=== PATIENT | male | born 1955 | race Caucasian/White ===

== ENCOUNTER 2017-06-13 06:24 | Emergency (ER) | payer OTHER ==
[~2017-06-13] VITALS: Ht 193 cm; Wt 129.6 kg
[~2017-06-13 06:24] MED LIST: ASPIR-LOW81 MG PO; CAL MAG ZINC +1 EAC1 PO; CALCIUM 500 +1 EACH PO; CITALOPRAM HBR40 MG PO; FISH OIL 1,0001 EAC7 PO; LASIX40 MG PO; LISINOPRIL20 MG PO; LO-DOSE ASPIRIN81 M1 PO; LOPRESSOR50 MG PO; METOPROLOL SUCC50 MG PO; MULTIPLE VITAM1 EAC1 PO; OMEGA 3-6-9 CO1 EACH PO; ONE-A-DAY ESSE1 EAC1 PO; PERCOCET 5/31 TABLET PO; POTASSIUM-9999 MG PO; PROBIOTIC1 EAC1 PO; PROBIOTIC1 EAC2 PO; RANITIDINE HCL150 MG PO; SOTALOL80 MG PO; TYLENOL ARTHRI650 MG PO; XARELTO20 MG PO
[2017-06-13 08:53] VITALS: BP 168/91
== END 2017-06-13 08:54 | disposition home or self-care (01) ==
LOC: EME → EDBD 06:24 → EME 08:54
DX: S16.1XXA Strain of muscle, fascia and tendon at neck level, initial encounter (principal); R51 Headache; M25.512 Pain in left shoulder; V43.52XA Car driver injured in collision with other type car in traffic accident, initial encounter; Y92.410 Unspecified street and highway as the place of occurrence of the external cause; M47.892 Other spondylosis, cervical region; I10 Essential (primary) hypertension; Z79.01 Long term (current) use of anticoagulants; Z79.82 Long term (current) use of aspirin
CPT/HCPCS: 70450; 72125; 73030; 99281; 99283

== ENCOUNTER 2017-11-28 01:30 | Inpatient (IN) | payer OTHER ==
[~2017-11-28] VITALS: Ht 193 cm; Wt 140.1 kg
[~2017-11-28 01:30] MED LIST changes: +METOPROLOL SUC100 MG PO; -METOPROLOL SUCC50 MG PO
[2017-11-28 02:00] LABS: HEMATOCRIT 49.6 % (38.0-50.0); HEMOGLOBIN 16.9 G/DL (12.5-16.6); MCH 30.3 PG (29.0-34.0); MCHC 34.1 G/DL (30.0-36.0); MCV 88.9 FL (86-99); PLATELET COUNT 268 K/uL (156-360); RBC DIS.WIDTH-CV 12.2 % (11.8-14.6); RBC DIS.WIDTH-SD 39.9 % (39-53); RED BLOOD COUNT 5.58 M/uL (4.00-5.50); WHITE BLOOD COUNT 10.8 K/uL (4.1-10.2)
[2017-11-28 02:11] LABS: CHLORIDE 105 mEq/L (99-109); POTASSIUM 4.2 mEq/L (3.7-5.4); SODIUM 141 mEq/L (136-147)
[2017-11-28 02:12] LABS: GLUCOSE 118 mg/dL (70-99)
[2017-11-28 02:17] LABS: CREATININE 0.8 mg/dL (0.6-1.3); GFR ESTIMATE (CALCULATED) > 59 mL/min/ (58.99-99999); UREA NITROGEN (BUN) 15 mg/dL (9-23)
[2017-11-28 02:21] LABS: TROP-I INTERPRETATION NEGATIVE; TROPONIN-I 0.03 ng/mL (0.0-0.30)
[2017-11-28 02:22] LABS: INTER. NORMALIZED RATIO 1.4; MAGNESIUM 2.2 mg/dL (1.3-2.7)
[2017-11-28 02:25] LABS: PTT 33.2 SEC (25-37)
[2017-11-28 05:30] VITALS: BP 161/78
[2017-11-28] MEDS ORDERED: CELEXA20 MG PO (05:53)
[2017-11-28] MEDS ORDERED: NORVASC5 MG PO (06:02)
[2017-11-28] MEDS ORDERED: LASIX40 MG PO (06:05)
[2017-11-28] MEDS ORDERED: ACID CONTROL150 MG PO (06:06)
[2017-11-28 07:29] VITALS: BP 134/82
[2017-11-28 09:18] VITALS: BP 124/85
[2017-11-28 10:52] LABS: TROP-I INTERPRETATION NEGATIVE; TROPONIN-I 0.02 ng/mL (0.0-0.30)
[2017-11-28] MEDS ORDERED: ALLEGRA ALLERG180 MG PO (11:14)
[2017-11-28] MEDS ORDERED: TYLENOL EXTRA500 MG PO (11:14)
[2017-11-28] MEDS ORDERED: CENTRUM SILVER1 EAC5 PO (11:14)
[2017-11-28] MEDS ORDERED: CLEAR EYES ITCH15 ML BOTH EYES (11:14)
[2017-11-28 11:45] VITALS: BP 133/76
[2017-11-28 16:15] VITALS: BP 117/71
[2017-11-28 18:16] LABS: TROP-I INTERPRETATION NEGATIVE; TROPONIN-I < 0.01 ng/mL (0.0-0.30)
[2017-11-28 20:00] VITALS: BP 125/81
[2017-11-29 00:26] VITALS: BP 123/66
[2017-11-29 04:00] VITALS: BP 114/67
[2017-11-29 07:33] VITALS: BP 136/65
[2017-11-29 09:09] LABS: BASOPHIL (%) 0.6 % (0-1); BASOPHIL COUNT 0.1 K/uL (0-0.1); EOSINOPHIL (%) 2.4 % (0-5); EOSINOPHIL COUNT 0.2 K/uL (0-0.3); HEMATOCRIT 51.2 % (38.0-50.0); HEMOGLOBIN 16.8 G/DL (12.5-16.6); IMMATURE GRANULOCYTE (%) 0.6 % (0.0-0.7); LYMPHOCYTE (%) 28.1 % (15-42); LYMPHOCYTE COUNT 2.8 K/uL (1.0-2.8); MCH 29.6 PG (29.0-34.0); MCHC 32.8 G/DL (30.0-36.0); MCV 90.1 FL (86-99); MONOCYTE (%) 9.1 % (3-12); MONOCYTE COUNT 0.9 K/uL (0-0.8); NEUTROPHIL (%) 59.2 % (45-76); NEUTROPHIL COUNT 5.8 K/uL (1.8-6.4); PLATELET COUNT 275 K/uL (156-360); RBC DIS.WIDTH-CV 12.4 % (11.8-14.6); RBC DIS.WIDTH-SD 40.8 % (39-53); RED BLOOD COUNT 5.68 M/uL (4.00-5.50); WHITE BLOOD COUNT 9.8 K/uL (4.1-10.2)
[2017-11-29 09:34] LABS: ALBUMIN 3.7 G/DL (3.2-4.8); ALKALINE PHOSPHATASE 64 IU/L (3-129); ALT (GPT) 30 IU/L (3-49); AST (GOT) 24 IU/L (2-34); CHLORIDE 106 MEQ/L (99-109); GFR ESTIMATE (CALCULATED) > 59 mL/min/ (58.99-99999); GLUCOSE 105 mg/dL (70-99); SODIUM 139 MEQ/L (136-147); TOTAL BILIRUBIN 0.7 MG/DL (0.0-1.0); TOTAL PROTEIN 6.5 G/DL (6.4-8.3); UREA NITROGEN (BUN) 19 mg/dL (9-23)
[2017-11-29 09:38] LABS: POTASSIUM 5.8 MEQ/L (3.7-5.4)
[2017-11-29 09:47] LABS: THYROTROPIN (TSH) 1.8 MIU/L (0.4-5.5)
[2017-11-29 11:07] VITALS: BP 124/80
[2017-11-29 12:38] LABS: HEMOGLOBIN A1c (GLYCOHEMOGLOB) 5.8 % (Below 5.7)
[2017-11-29 14:45] VITALS: BP 132/81
[2017-11-29] MEDS ORDERED: LOPRESSOR100 M1 PO (15:05)
[2017-11-29] MEDS ORDERED: DILTIAZEM 24HR240 MG PO (15:06)
[2017-11-29] MEDS ORDERED: METOPROLOL SUC100 MG PO (15:20)
== END 2017-11-29 15:30 | disposition home or self-care (01) | DRG 310 ==
LOC: EME 01:30 → 4EAST 03:39 → EDOF 03:39 → ENRESERV 03:43 → EDOF 04:43 → 4EAST 05:21
PROVIDERS: Emergency Medicine; Family Medicine
DX: I48.91 Unspecified atrial fibrillation (principal); I48.92 Unspecified atrial flutter; E11.9 Type 2 diabetes mellitus without complications; E78.5 Hyperlipidemia, unspecified; F32.9 Major depressive disorder, single episode, unspecified; F41.9 Anxiety disorder, unspecified; G47.30 Sleep apnea, unspecified; I10 Essential (primary) hypertension; I45.10 Unspecified right bundle-branch block; I87.2 Venous insufficiency (chronic) (peripheral); R20.0 Anesthesia of skin; K21.9 Gastro-esophageal reflux disease without esophagitis; R51 Headache; E66.9 Obesity, unspecified; Z68.34 Body mass index [BMI] 34.0-34.9, adult; Z79.01 Long term (current) use of anticoagulants; Z79.82 Long term (current) use of aspirin; Z88.0 Allergy status to penicillin
CPT/HCPCS: 70551; 71045; 80048; 80053; 83036; 83735; 84439; 84443; 84484; 85025; 85027; 85610; 85730; 93005; 94799; 99281; 99284